=== PATIENT | male | born 1960 | race American Indian/Alaskan Native ===

== ENCOUNTER 2018-10-01 11:17 | Day surgery (SDC) | payer OTHER ==
[~2018-10-01 11:17] MED LIST: ANCEF/STERILE WATER 2 GM/20 ML IV NR
[2018-10-01] MEDS ORDERED: LACTATED RINGERS 1,000 ML ONE ×2 (11:53→11:54)
[2018-10-01] MEDS ORDERED: VERSED ONE ×2 (11:53→11:54)
[2018-10-01] MEDS ORDERED: DIPRIVAN 10 MG/ML IV ONE (14:50)
[2018-10-01] MEDS ORDERED: DECADRON ONE (14:50)
[2018-10-01] MEDS ORDERED: XYLOCAINE MPF 2% ONE (14:50)
[2018-10-01] MEDS ORDERED: ZOFRAN ONE (14:50)
[2018-10-01] MEDS ORDERED: SUBLIMAZE ONE (14:50)
--- NOTE | 2018-10-01 15:52 | Short Stay Summary ---
Short Stay Documentation Date of service: 10/01/18 - History H&P: obtained from office - Allergies and Medications Current Medications: Allergies No Known Allergies Allergy (Verified 09/29/18 17:03) Home Medications Medication Instructions Recorded Confirmed Last Taken Type Darunavir/Cobicistat (Nf) 1 tab PO DAILY 10/01/18 10/01/18 09/30/18 19:00 History [Prezcobix 800 mg-150 mg (Nf)] Emtricitabine/Tenofov Alafenam 1 tab PO DAILY 10/01/18 10/01/18 09/30/18 19:00 History [Descovy 200-25 mg Tablet] HYDROcodone/ACETAMINOPHEN 1 tab PO DAILY 10/01/18 10/01/18 09/30/18 19:00 History [Hydrocodone-Acetamin 5-325 mg] Ibuprofen 1 tab PO DAILY 10/01/18 10/01/18 09/30/18 19:00 History Isoniazid 1 tab PO DAILY 10/01/18 10/01/18 09/30/18 19:00 History Lisinopril [Zestril TAB] 1 tab PO DAILY 10/01/18 10/01/18 09/30/18 19:00 History Tamsulosin [Flomax] 1 tab PO DAILY 10/01/18 10/01/18 09/30/18 19:00 History cefUROXime [Ceftin] 1 tab PO BID 10/01/18 10/01/18 09/30/18 19:00 History Active Medications Cefazolin Sodium (Ancef/Sterile Water 2 Gm/20 Ml) 2 gm IV PREOP NR Stop: 10/01/18 20:00 - Brief post op/procedure progress note Date of procedure: 10/01/18 Pre-op diagnosis: right uret stone 10mm Post-op diagnosis: same Procedure: right uret eswl main 7-8; max 9 5440 Anesthesia: GETA Findings: good vis, min frag Surgeon: BHUMIKA ROMERO Estimated blood loss: minimal Pathology: none Condition: stable - Hospital course Hospital course: orpacuhome - Disposition Condition at discharge: Good Disposition: DC-01 TO HOME OR SELFCARE Short Stay Discharge Plan Activity: advance as tolerated Follow up with: MIKE ALEXANDER MD [Staff Physician] - 7 Days
[2018-10-01] MEDS ORDERED: DILAUDID IV PRN (16:27)
[2018-10-01] MEDS ORDERED: ZOFRAN IV PRN (16:27)
[2018-10-01] MEDS ORDERED: DILAUDID ONE (16:28)
[2018-10-01 17:33] VITALS: BP 132/84
--- NOTE | 2018-10-01 18:25 | Anesthesia Day of Surgery ---
Anesthesia Day of Surgery - Day of Surgery Patient Examined: Yes Patient H&P Reviewed: Yes Patient is NPO: Yes
--- NOTE | 2018-10-01 18:25 | Anesthesia Consultation ---
Anesthesia Consult and Med Hx Date of service: 10/01/18 - Airway Anesthetic Teeth Evaluation: Good ROM Head & Neck: Adequate Mental/Hyoid Distance: Adequate Mallampati Class: Class II Intubation Access Assessment: Probably Good - Pulmonary Exam CTA: Yes - Cardiac Exam Cardiac Exam: RRR - Pre-Operative Health Status ASA Pre-Surgery Classification: ASA3 Proposed Anesthetic Plan: General - Pulmonary Hx Smoking: No Hx Sleep Apnea: No (TONYA PRE SCREEN HIGH RISK) - Cardiovascular System Hx Hypertension: Yes (X 2 YRS) - Other Systems Hx Cancer: No
--- NOTE | 2018-10-07 11:00 | Operative Report ---
UROLOGY OPERATIVE NOTE PREOPERATIVE DIAGNOSIS: Right ureteral stone, 10 mm. POSTOPERATIVE DIAGNOSIS: Right ureteral stone, 10 mm. PROCEDURE: Right ureteral extracorporeal shockwave lithotripsy, 7-8 maximum kilovolts, mainly maximum 9, 2750 shocks. ANESTHESIA: General. FINDINGS: Good visualization, only minimal fragmentation. CLINICAL INDICATIONS: Counseled by primary urologist and me for procedure, questions answered. DESCRIPTION OF PROCEDURE: The patient was transferred to OR suite in supine position, left in the supine position, anesthesia begun. Final fluoroscopy was used to target the stone with an F2. There was good visualization of the stone. At the end of the procedure, there was decreased density of the stone. Intermittent repositioning was done as necessary. The procedure was done at 7-8 kilovolts and then short period of some 9 kilovolt, 2750 shocks were delivered. At the end of the procedure, there was [id number] fragmentation. The patient was awakened and transferred to PACU in good and stable condition. PLAN: Stage for possible repeat extracorporeal shockwave lithotripsy or ureteroscopy. JOB# [id number] ATS/NTS
== END 2018-10-01 11:18 | disposition home or self-care (01) ==
LOC: OR 11:17
PROVIDERS: ATTEND Urology
DX: N20.1 Calculus of ureter (principal); E11.9 Type 2 diabetes mellitus without complications; I10 Essential (primary) hypertension; G43.909 Migraine, unspecified, not intractable, without status migrainosus; Z21 Asymptomatic human immunodeficiency virus [HIV] infection status; Z79.899 Other long term (current) drug therapy; Z98.890 Other specified postprocedural states
CPT/HCPCS: 50590; 82962; J0690; J1100; J1170; J2250; J2405; J2704; J3010; J7120